=== PATIENT | female | born 1955 | race Caucasian/White ===

== ENCOUNTER 2020-05-04 06:49 | Day surgery (SDC) | payer MEDICARE, OTHER ==
[~2020-05-04] VITALS: Ht 152.4 cm; Wt 89.4 kg
[2020-05-04] VITALS (9 sets, daily range): BP systolic 128–172; BP diastolic 64–97; O2SAT 95
[2020-05-04 08:02] LABS: BASO % 0.3 % (0.0-1.0); EOS # 0.1 10^3/uL (0.0-0.5); EOS % 1.2 % (0.0-3.0); HEMOGLOBIN 12.2 g/dl (12.0-15.5); LYMPH % 22.4 % (24.0-44.0); MEAN CORPUSCULAR HEMOGLOBIN 30.5 pg (27.0-33.0); MEAN CORPUSCULAR HGB CONC 32.1 g/dl (32.0-36.5); MONO # 0.6 10^3/uL (0.0-0.8); MONO % 6.3 % (0.0-5.0); NEUTROPHILS # 6.3 10^3/uL (1.5-8.5); NEUTROPHILS % 69.5 % (36.0-66.0); PLATELET COUNT, AUTOMATED 232 10^3/uL (150-450); WHITE BLOOD COUNT 9.1 10^3/uL (4.0-10.0)
[2020-05-04] MEDS: GASTROGRAFIN SOLUTION 30ML PO SCH ×2 (08:13→08:14)
[2020-05-04 08:24] LABS: INR 1.11
[2020-05-04 08:25] LABS: PARTIAL THROMBOPLASTIN TIME 26.8 SECONDS (25.0-38.4)
[2020-05-04 08:26] LABS: ALT/SGPT 20 U/L (12-78); CK-MB VALUE MASS 3.5 NG/ML (<3.6); CPK CREATINE PHOSPHOKINASE 66 U/L (26-192)
[2020-05-04 08:27] LABS: ALBUMIN 3.3 GM/DL (3.2-5.2); AMYLASE 44 U/L (25-115); BILIRUBIN,DIRECT 0.2 MG/DL (0.0-0.2); BILIRUBIN,TOTAL 0.5 MG/DL (0.2-1.0); LIPASE 83 U/L (73-393); TOTAL PROTEIN 7.6 GM/DL (6.4-8.2); TROPONIN I < 0.02 NG/ML (< 0.10)
[2020-05-04] MEDS: PANTOPRAZOLE 40MG VIAL (C9113 PER 1) IV SCH (09:00)
[2020-05-04] MEDS ORDERED: SIMV20TA22 PO (09:09)
[2020-05-04] MEDS ORDERED: PROM50TA4 PO (09:09)
[2020-05-04] MEDS ORDERED: LOSA50TA5 PO (09:09)
[2020-05-04] MEDS ORDERED: PANT40TA3 PO (09:09)
[2020-05-04] MEDS ORDERED: OXYC-141 PO (09:09)
[2020-05-04] MEDS ORDERED: ROXI1TAB2 PO (09:09)
[2020-05-04] MEDS ORDERED: MS C15TA8 PO (09:09)
[2020-05-04] MEDS ORDERED: ISOVUE-370 76% 100ML VIAL As Ordered ONE (09:12)
[2020-05-04] MEDS ORDERED: MORPHINE 4 MG/ML 1ML VIAL/SYRINGE (J2270) IV ONE ×2 (09:30→10:15)
[2020-05-04] MEDS ORDERED: ONDANSETRON 4MG/2ML VIAL IV ONE (09:30)
--- NOTE | 2020-05-04 09:45 | REP ---
CHEST, TWO VIEWS: No comparison. Two views of the chest are performed. There is no acute infiltrate. The heart is normal in size. There is mild calcification of the thoracic aorta. The mediastinal silhouette is otherwise unremarkable. There are degenerative changes of the spine. There are metallic rods and screws in the lower thoracic and lumbar spine. IMPRESSION: No acute pulmonary disease. Electronically Signed by Ryan Pinto MD 05/05/2020 10:27 A
--- NOTE | 2020-05-04 10:55 | REP ---
CT ABDOMEN AND PELVIS WITH ORAL AND IV CONTRAST: TECHNIQUE: Axial contrast-enhanced images from the lung bases to the pubic symphysis using 100 mL Isovue-370 intravenous contrast material with multiplanar reformations. Visualized lung base demonstrate no infiltrate. In the left lobe of the liver anteriorly, there is a 1.2 cm enhancing nodule in a subcapsular location. This may represent a small hemangioma. The gallbladder is moderately distended. Spleen is normal in size with no intrinsic abnormality. The adrenal glands are normal. No pancreatic mass is seen. No hydronephrosis is seen of either kidney. There is 7 mm stone in the right lower pole collecting system. There is atherosclerotic calcification of the abdominal aorta without aneurysm. There is no adenopathy. There is no free air. There is an umbilical hernia containing an obstructed small bowel loop as well as mild to moderate fluid. The more proximal small bowel is moderately dilated. The distal small bowel is collapsed. There is mild scattered free fluid. Urinary bladder is mildly distended and grossly unremarkable. No pelvic mass is seen. There is evidence of prior fusion surgery of the thoracolumbar spine with metallic rods and screws noted. There is grade 2 anterior spondylolisthesis of L4 on L5. There are diffuse degenerative changes. Small left femoral hernia contains noninflamed fat. IMPRESSION: Small bowel obstruction caused by an entrapped small bowel loop in an umbilical hernia. There is mild fluid also seen in the hernia sac. There is mild scattered free fluid in the abdomen. There is no free air. Enhancing nodule left lobe of the liver may represent a small hemangioma 1.2 cm in diameter. Intrarenal calculus right kidney 7 mm in diameter with no hydronephrosis. Electronically Signed by Ryan Pinto MD 05/05/2020 11:13 A
[2020-05-04] MEDS ORDERED: PROMETHAZINE INJ 25 MG/ML VIAL (J2550) IV ONE (11:15)
[2020-05-04] MEDS ORDERED: CALC1TAB74 PO (11:48)
[2020-05-04] MEDS ORDERED: LIDO1PAD TOP (11:48)
[2020-05-04] MEDS ORDERED: OXYC10TA12 PO (11:48)
[2020-05-04] MEDS ORDERED: PROM12.56 PO (11:48)
[2020-05-04] MEDS ORDERED: MAGN400T3 PO (11:48)
[2020-05-04] MEDS ORDERED: HM P99TA PO (11:48)
[2020-05-04] MEDS ORDERED: TIZA4TAB4 PO (11:48)
[2020-05-04] MEDS ORDERED: ceFAZolin SOD 1 GM in D5W MINI-BAG PLUS 50 ML IV ONE (14:30)
[2020-05-04] MEDS ORDERED: MORPHINE 10 MG/ML 1ML VIAL (J2270) IV PRN (14:45)
[2020-05-04] MEDS ORDERED: ONDANSETRON 4MG/2ML VIAL IV PRN ×2 (14:45→17:30)
[2020-05-04] MEDS ORDERED: MORPHINE 4 MG/ML 1ML VIAL/SYRINGE (J2270) IV PRN (14:45)
[2020-05-04] MEDS: LR 1,000 ML IV SCH ×2 (15:06→20:22)
[2020-05-04] MEDS ORDERED: BUPIVACAINE LIPOSOME/PF 1.3% 20ML VIAL (13.3MG/ML)(EXPAREL)(C9290 PER1MG) As Ordered ONE (15:37)
[2020-05-04] MEDS ORDERED: BUPIVACAINE HCL 0.25% 10ML VIAL As Ordered ONE (15:37)
[2020-05-04] MEDS ORDERED: BUPIVACAINE/EPIN 0.25% 30 ML VIAL As Ordered ONE (15:37)
[2020-05-04] MEDS ORDERED: KETOROLAC 60MG 2ML VIAL As Ordered ONE (17:10)
[2020-05-04] MEDS ORDERED: SUGAMMADEX SODIUM 500 MG/5 ML VIAL (BRIDION) As Ordered ONE (17:10)
[2020-05-04] MEDS ORDERED: fentaNYL 100 MCG/2 ML INJECTION (J3010) As Ordered ONE (17:10)
[2020-05-04] MEDS ORDERED: PHENYLephrine HCL 500 MCG/5 ML (100MCG/ML) SYRINGE (J2370) As Ordered ONE (17:10)
[2020-05-04] MEDS ORDERED: ACETAMINOPHEN 1000MG 100ML IV BTL (OFIRMEV) (J0131 PER 10MG) As Ordered ONE (17:10)
[2020-05-04] MEDS ORDERED: ROCURONIUM BROMIDE 50 MG/5 ML VIAL As Ordered ONE (17:10)
[2020-05-04] MEDS ORDERED: SUCCINYLCHOLINE 100 MG/5 ML SYRINGE (J0330) As Ordered ONE (17:10)
[2020-05-04] MEDS ORDERED: propofoL 200 MG/20 ML VIAL As Ordered ONE (17:10)
[2020-05-04] MEDS ORDERED: HYDROmorphone HCL 2 MG/ML 1ML VIAL (J1170) As Ordered ONE (17:10)
[2020-05-04] MEDS ORDERED: ONDANSETRON 4MG/2ML VIAL As Ordered ONE (17:10)
[2020-05-04] MEDS ORDERED: ePHEDrine SULFATE 25 MG/5 ML(5MG/ML) SYRINGE As Ordered ONE (17:10)
[2020-05-04] MEDS ORDERED: MIDAZOLAM INJ 2MG/2ML VIAL (J2250 PER 1MG) As Ordered ONE (17:10)
[2020-05-04] MEDS ORDERED: dexameTHASONE 4 MG/ML 1ML VIAL (J1100 PER 1MG) As Ordered ONE (17:10)
[2020-05-04] MEDS ORDERED: VASOPRESSIN INJ 20 UNITS/ML VIAL As Ordered ONE (17:10)
[2020-05-04] MEDS ORDERED: LIDOCAINE 2% 100MG/5ML SDV (FOR ANES.) As Ordered ONE (17:10)
[2020-05-04] MEDS ORDERED: oxyCODONE 5MG TAB PO PRN ×2 (17:15→17:30)
--- NOTE | 2020-05-04 17:25 | RO ---
DATE OF PROCEDURE: 05/04/2020 PREOPERATIVE DIAGNOSIS: Incarcerated local hernia. POSTOPERATIVE DIAGNOSIS: Incarcerated local hernia. PROCEDURE: Repair of incarcerated umbilical hernia with ventral patch/mesh. SURGEON: Guanako Bender MD LIFE ASSURANCE REPRESENTATIVE: ANESTHESIA: General endotracheal anesthesia. ESTIMATED BLOOD LOSS (EBL): Minimal. FLUIDS: Crystalloid. BRIEF PROCEDURE SUMMARY: The patient was brought to the operating room, was given general anesthesia. After adequate anesthesia and preoperative antibiotics were given, the patient was prepped and draped in the usual sterile fashion. Next, a supraumbilical curvilinear incision was made with skin knife. Blunt dissection was carried down to fascia and the base of the hernia, and then the hernia was able to be reduced spontaneously. Once the abdominal wall was relaxed, the hernia sac was entered and revealed some clear fluid but no evidence of bloody fluid. The bowel in this area appeared to pink viable and normal-appearing slightly distended. The base of the hernia sac was transected on the level of the fascia and then the ventral patch was placed in the peritoneal cavity making sure that it was up against the abdominal wall circumferentially and no adhesions were present. The tails of the mesh were sutured to the fascia and then the fascia was closed with three interrupted [id number] #0 Ethibond sutures. Vicryl was used to approximate the dermis. #4-0 Vicryl was used to approximate the skin. Steri-Strips and dry sterile dressing was applied. The patient was awakened, extubated, brought to the recovery room awake, alert, hemodynamically stable. Sponge and needle counts correct times two.
[2020-05-04] MEDS ORDERED: LR 1,000 ML IV SCH (17:30)
[2020-05-04] MEDS ORDERED: fentaNYL 100 MCG/2 ML INJECTION (J3010) IV PRN (17:30)
[2020-05-04] MEDS: MORPHINE 15 MG SA TAB PO SCH (20:21)
[2020-05-04] MEDS ORDERED: tiZANidine 4 MG TAB PO SCH (21:00)
[2020-05-04] MEDS ORDERED: SIMVASTATIN 20 MG TAB PO SCH (21:00)
[2020-05-05] VITALS (8 sets, daily range): BP systolic 101–160; BP diastolic 59–96; O2SAT 94–97
[2020-05-05] MEDS ORDERED: hydroCHLOROthiazide 12.5 MG CAPSULE PO ONE (01:00)
[2020-05-05] MEDS ORDERED: LOSARTAN 50MG TABLET PO ONE (01:00)
[2020-05-05] MEDS: PANTOPRAZOLE 40MG VIAL (C9113 PER 1) IV SCH (09:04)
[2020-05-05] MEDS: MORPHINE 15 MG SA TAB PO SCH (09:05)
--- NOTE | 2020-05-05 11:13 | IPN ---
DATE: 05/05/2020 Patient has been having some flatus this morning, is feeling very well, has been moving around, active and has no nausea, would like something to eat or drink at this time, but otherwise, has been making some good but slow progress over the morning. Her incision is healing nicely. She is less distended than she was yesterday and overall has made some good progress. IMPRESSION/PLAN: Patient is resolving her small bowel obstruction secondary to the incarcerated umbilical hernia. My recommendation is that we advance her diet as tolerated. We will plan on her being discharged home once she is tolerating a diet and then she can followup with her primary care in [place], [place]. She states that she will be continuing to use her usual pain medications that she used for her back and her abdominal discomfort is not significant enough to need additional pain medication per se. I have discussed her dressing care and wound care instructions with her and we will see how she does with the diet and then will plan on discharge if necessary later on today.
--- NOTE | 2020-05-05 21:16 | ECGEPIP ---
[facility] - ED Test Date: 2020-05-04 Pat Name: KEILY ALLEN Department: Room: - Gender: Female [employer] Tr[employer] Shooter: JCalixto : 1955 Requested By: NINO Rees PA-C Order Number: [id number] Reading MD: Yehuda Martinez Measurements Intervals [place] Rate: 91 P: 22 PA: 152 QRS: 8 QRSD: 96 T: 17 QT: 376 QTc: 465 Interpretive Statements SINUS RHYTHM INCOMPLETE RIGHT BUNDLE BRANCH BLOCK NO PRIORS FOR COMPARISON Electronically Signed on 05-05-2020 21:16:12 EDT by Yehuda Martinez
== END 2020-05-05 14:49 | disposition home or self-care (01) ==
LOC: M ED 06:49 → M SDC 12:20 → ENRESERV 13:30 → M MSPAV 14:03 → M SDC 05-05 14:49
PROVIDERS: ATTEND Surgery
DX: K42.0 Umbilical hernia with obstruction, without gangrene (principal); E11.319 Type 2 diabetes mellitus with unspecified diabetic retinopathy without macular edema; E78.5 Hyperlipidemia, unspecified; I10 Essential (primary) hypertension; K21.9 Gastro-esophageal reflux disease without esophagitis; Z79.899 Other long term (current) drug therapy; Z88.8 Allergy status to other drugs, medicaments and biological substances; Z98.84 Bariatric surgery status
CPT/HCPCS: 36415; 49587; 71046; 74177; 80047; 80076; 81001; 82150; 82550; 82553; 83605; 83690; 84484; 85025; 85610; 85730; 87040; 87486; 87581; 87633; 87798; 88302; 93005; 93041; 96361; 96374; 96375; 96376; 99285; C1781; C9113; C9290; G0378; J0131; J0330; J1100; J1170; J1885; J2250; J2270; J2370; J2405; J3010; Q9963; Q9967